=== PATIENT | male | born 1950 | race Caucasian/White ===

== ENCOUNTER 2016-09-05 20:41 | Emergency (ER) | payer SELFPAY ==
[2016-09-05 20:55] VITALS: BP 156/91; PULSE 78; RESP 20; TEMP 98; O2SAT 100
--- NOTE | 2016-09-05 22:19 | C.PDOC ---
History Of Present Illness 66 year old male presents to the ED with complaints of left knee pain for one week and swelling. Patient states pain is worse when ambulating but denies any trauma. He notes a history of arthritis, more so in the right knee. Patient denies any medications taken for pain at home, vomiting, or other complaints at this time. Time Seen by Provider: 09/05/16 21:04 Chief Complaint (Nursing): Lower Extremity Problem/Injury History Per: Patient History/Exam Limitations: no limitations Onset/Duration Of Symptoms: Days (one week ) Current Symptoms Are (Timing): Still Present Recent travel outside of the [place]: No Past Medical History Reviewed: Historical Data, Nursing Documentation, Vital Signs Vital Signs: Last Vital Signs Temp 98 F 09/05/16 20:43 Pulse 78 09/05/16 20:43 Resp 20 09/05/16 22:23 BP 156/91 H 09/05/16 20:43 Pulse Ox 100 09/06/16 01:19 - Medical History PMH: Arthritis, HTN Family History: States: No Known Family Hx - Social History Hx Tobacco Use: No Hx Alcohol Use: No Hx Substance Use: No - Immunization History Hx Tetanus Toxoid Vaccination: No Hx Influenza Vaccination: No Hx Pneumococcal Vaccination: No Review Of Systems Constitutional: Negative for: Fever, Chills, Sweats Cardiovascular: Negative for: Chest Pain, Palpitations Respiratory: Negative for: Cough, Shortness of Breath Gastrointestinal: Negative for: Nausea, Vomiting, Abdominal Pain, Diarrhea Musculoskeletal: Positive for: Other (left knee pain ) Physical Exam - Physical Exam Appears: Non-toxic, No Acute Distress Skin: Warm, Dry Head: Atraumatic Eye(s): bilateral: Normal Inspection Oral Mucosa: Moist Neck: Supple Chest: Symmetrical, No Deformity Cardiovascular: Rhythm Regular Extremity: Normal ROM, Tenderness (tenderness to left knee), No Deformity, Swelling (swelling to anterior aspect of left knee ), Other (no erythema, no warmth, no limitations to left knee. Strength and sensation normal to left knee. ) Extremity: Bilateral: Atraumatic, Normal Color And Temperature Pulses: Left Dorsalis Pedis: Normal, Right Dorsalis Pedis: Normal Neurological/Psych: Oriented x3, Normal Motor, Normal Sensation Gait: Steady ED Course And Treatment O2 Sat by Pulse Oximetry: 100 (room air ) - Other Rad Left knee X-Ray X-Ray: Interpreted by Me, Viewed By Me Interpretation: No arthritic changes to left knee Progress Note: VENKAT given and patient was fully ambulatory upon discharge. Disposition Counseled Patient/Family Regarding: Diagnosis, Need For Followup, Rx Given - Disposition Disposition: HOME/ ROUTINE Disposition Time: 22:18 Condition: STABLE Additional Instructions: Sigue en clinica Natalie motrin por angus Benntet la sherna Regresa si peor Prescriptions: Ibuprofen [Motrin] 600 mg PO Q6H #30 tab Instructions: Knee Pain (ED), Arthralgia (ED) Print Language: VIET[place]ESE - Clinical Impression Clinical Impression: Arthritis, Knee pain, left - Scribe Statement The provider has reviewed the documentation as recorded by the Scribe Cammie Mae All medical record entries made by the Gladysibponcho were at my direction and personally dictated by me. I have reviewed the chart and agree that the record accurately reflects my personal performance of the history, physical exam, medical decision making, and the department course for this patient. I have also personally directed, reviewed, and agree with the discharge instructions and disposition.
--- NOTE | 2016-09-06 18:04 | RAD ---
PROCEDURE: Left Knee Radiographs. Ro HISTORY: Pain. COMPARISON: None. FINDINGS: BONES: No evidence of acute displaced fracture nor dislocation. The osseous structures appear intact. Tricompartmental degenerative osteoarthritis. . There is medial joint space narrowing with small marginal medial and lateral osteophyte formation. Tiny posterior patella osteophytes present as well. Prominent anterior superior and anterior inferior patella enthesophyte formation. JOINTS: Normal. No osteoarthritis. JOINT EFFUSION: Suspect small suprapatellar joint effusion. OTHER FINDINGS: None. IMPRESSION: Suspect a small No definitive radiographic evidence of acute displaced fracture nor dislocation. DJD degenerative osteoarthritis as above. Suspect small joint effusion
== END 2016-09-05 22:23 | disposition home or self-care (01) ==
LOC: C.ER 20:41
DX: M13.862 Other specified arthritis, left knee (principal); M25.562 Pain in left knee